=== PATIENT | female | born 1990 | race Caucasian/White ===

== ENCOUNTER 2018-10-14 09:17 | Day surgery (SDC) | payer BC ==
[~2018-10-14] VITALS: Ht 167.6 cm; Wt 166.4 kg
[2018-10-14 10:51] VITALS: Ht 167.6 cm; Wt 166.4 kg
[2018-10-14] MEDS ORDERED: NO MEDS (10:53)
--- NOTE | 2018-10-14 11:09 | HPN ---
Date/Time of Note Date/Time of Note DATE: 10/14/18 TIME: 11:09 Interval H&P Admission Note Pt. seen H&P reviewed: No system changes MORE HOOKS October 14, 2018 11:09
[2018-10-14] MEDS ORDERED: PROPOFOL 20 ML ONE (11:24)
[2018-10-14] MEDS ORDERED: FENTAnyl 50 MCG/ML VIAL ONE (11:24)
--- NOTE | 2018-10-14 11:26 | PREAC ---
Date/Time of Note Date/Time of Note DATE: 10/14/18 TIME: 11:24 Anesthesia Eval and Record Evaluation Time Pre-Procedure Interview DATE: 10/14/18 TIME: 11:24 Age 27 Sex female NPO: 8 hrs Preoperative diagnosis bariatric surgery status Planned procedure EGD Past Medical History Past Medical History: Includes GI: Morbid obesity Psych: Depression Surgery & Anesthesia Issues No known issue Meds Anticoagulation: No Beta Salomón within 24 hr: No Reason Beta Salomón not given: Pt. not on B-Salomón Reported Medications [No Meds] No Conflict Check 10/14/18 Meds reviewed: Yes Allergies Coded Allergies: No Known Allergy (Unverified , 10/14/18) Allergies Reviewed: Yes Labs/Studies Labs Reviewed: Reviewed by anesthesiologist test: Negative Pre-procedure Exam Airway: Adequate mouth opening, Adequate thyromental dist Mallampati: Mallampati II Teeth: Normal Lung: Normal Heart: Normal ASA Physical Status ASA physical status: 3 Emergency: None Planned Anesthetic General/MAC: MAC Pre-operative Attestations Prior to commencing anesthesia and surgery, the patient was re-evaluated, there was verification of: *The patient's identity *The results of appropriate recent lab work and preoperative vital signs *The above evaluation not changing prior to induction *Anesthetic plan, risk benefits, alternative and complications discussed with patient/family; questions answered; patient/family understands, accepts and wishes to proceed. MARCELLUS AYERS October 14, 2018 11:26
[2018-10-14 11:30] VITALS: BP 166/83; PULSE 90; RESP 18
[2018-10-14] MEDS ORDERED: FENTAnyl 50 MCG/ML VIAL IV PRN (11:30)
[2018-10-14] MEDS ORDERED: ONDANSETRON 4 MG INJ IV PRN (11:30)
[2018-10-14] MEDS ORDERED: ALBUTEROL 0.083% (NEB) 2.5 MG/3 ML AMP HHN PRN (11:30)
[2018-10-14] MEDS ORDERED: ACETAMINOPHEN 500 MG TAB PO PRN (11:30)
[2018-10-14 11:55] VITALS: BP 138/67; PULSE 88; RESP 16
[2018-10-14 12:10] VITALS: BP 124/65; PULSE 80; RESP 16
--- NOTE | 2018-10-14 14:37 | PAC ---
Date/Time of Note Date/Time of Note DATE: 10/14/18 TIME: 14:37 Post-Anesthesia Notes Post-Anesthesia Note Last documented vital signs Vital Signs Date Temp Pulse Resp B/P (MAP) Pulse Ox O2 O2 Flow FiO2 Time Delivery Rate 10/14/18 98.9 80 16 124/65 93 Room Air 12:10 (84) Activity: WNL Respiratory function: WNL Cardiovascular function: WNL Mental status: Baseline Pain reasonably controlled: Yes Hydration appropriate: Yes Nausea/Vomiting absent: No XENA BENITEZ MD October 14, 2018 14:37
== END 2018-10-14 12:52 | disposition home or self-care (01) ==
LOC: GIL 09:17
PROVIDERS: ATTEND Internal Medicine Gastroenterology
DX: K44.9 Diaphragmatic hernia without obstruction or gangrene (principal); K29.50 Unspecified chronic gastritis without bleeding; Z98.84 Bariatric surgery status
CPT/HCPCS: 43239; 88305; 88312; J3010; Z7610